=== PATIENT | female | born 1965 | race Caucasian/White ===

== ENCOUNTER → 2018-09-19 16:08 | Outpatient (CLI) | payer MEDICAID, SELFPAY ==
[2018-09-19 16:47] LABS: D-Dimer Quantitative (DVT/PE) 3.28 FEU/ug/m (0.27-0.49)
== END ==
PROVIDERS: Family Provider Family Medicine; PCP Family Medicine
DX: R06.02 Shortness of breath (principal)
CPT/HCPCS: 85379

== ENCOUNTER 2018-09-19 17:59 | Observation (INO) | payer MEDICAID, SELFPAY ==
[2018-09-19] VITALS (11 sets, daily range): BP systolic 95–142; BP diastolic 73–78; PULSE 89–117; RESP 18–21; TEMP 36.6–36.9; O2SAT 91–97; BMI 62.9; BMI 65.2
--- NOTE | 2018-09-19 19:07 | EKG12_ITS ---
Test Reason : SOB Blood Pressure : / mmHG Vent. Rate : 101 BPM Atrial Rate : 101 BPM P-R Int : 124 ms QRS Dur : 082 ms QT Int : 358 ms P-R-T Axes : 056 015 -15 degrees QTc Int : 464 ms Sinus tachycardia Low voltage QRS Nonspecific T wave abnormality Abnormal ECG Confirmed by JOCELINE SHANKAR ([id number]), film and video editor ALBERT BRIGGS ([id number]) on 09/20/2018 2:17:20 PM Referred By: Lucero Figueroa Confirmed By:JOCELINE SHANKAR
--- NOTE | 2018-09-19 19:13 | CT_ITS ---
STUDY: CTA HEAD AND NECK WITH CONTRAST REASON FOR EXAM: Female, 53 years old. Elevated d-dimer. Visual changes. RADIATION DOSAGE (If Supplied By Facility): CTDIvol = ( 36.41 ) mGy, DLP = ( 4228.81 ) mGycm TECHNIQUE: CT angiography was performed with a multi-detector CT scanner. Data acquisition was obtained from the skull base through the vertex following intravenous administration of 100ML IV Isovue 370. MIP images were reconstructed from the axial data set. Post-processing of the angiographic images was performed, with multiplanar reformation and 3D reconstruction. There is suboptimal enhancement. Individualized dose optimization techniques were used for this CT. COMPARISON: No relevant priors. FINDINGS: Normal bilateral petrous carotid arteries. Normal right cavernous carotid artery with a normal supraclinoid bifurcation. Normal left cavernous carotid artery with a normal supraclinoid bifurcation. Normal right A1 segments of the anterior cerebral artery. Normal left A1 segments of the anterior cerebral artery. Normal intact anterior communicating artery (ACOM). Normal bilateral A2 segments of the anterior cerebral arteries. Normal right M1 and M2 segments of the middle cerebral arteries, with a normal M1 bifurcation. Normal left M1 and M2 segments of the middle cerebral arteries, with a normal M1 bifurcation. There is non-visualization of the right posterior communicating artery (PCOM). Normal left posterior communicating artery (PCOM). Normal bilateral vertebral arteries. Normal basilar artery with a normal basilar bifurcation. The visualized bilateral superior cerebellar (SCA) arteries are normal. Normal bilateral P1, P2 and visualized P3 segments of the posterior cerebral arteries. There is no demonstrated aneurysm of the [place]. There is no demonstrated abnormality of the visualized brain. AORTIC ARCH: Normal visualized aortic arch. Normal origins of the brachiocephalic, left common carotid, and left subclavian arteries. RIGHT CAROTID ARTERIES: Normal right common carotid artery (CCA). Normal right common carotid bulb. Normal origin of the right internal carotid (ICA) artery without a hemodynamically significant stenosis. Normal visualized cervical portion of the right internal carotid artery. Normal origin of the right external carotid artery (ECA). LEFT CAROTID ARTERIES: Normal left common carotid artery (CCA). Normal left common carotid bulb. Normal origin of the left internal carotid (ICA) artery without a hemodynamically significant stenosis. Normal visualized cervical portion of the left internal carotid artery. Normal origin of the left external carotid artery (ECA). VERTEBRAL ARTERIES: Normal bilateral vertebral arteries. There are postoperative changes of the cervical spine. CT/CTA Head AND Neck W/ Contrast IMPRESSION: Normal CTA Head and neck with contrast. Electronically Signed: Kishan Phillips MD at 21:30 EDT , Service support ,
--- NOTE | 2018-09-19 19:13 | CT_ITS ---
We are attempting to reach an attending provider to discuss findings. An addendum with communication details will be sent when the communication is complete. STUDY: CTA CHEST REASON FOR EXAM: Female, 53 years old. Shortness of breath. Elevated d-dimer. Visual changes RADIATION DOSAGE (If Supplied By Facility): CTDIvol = ( 36.41 ) mGy, DLP = ( 4228.81 ) mGycm TECHNIQUE: The examination was performed with the intravenous administration of 100ML IV Isovue 370. Post-processing of the angiographic images was performed, with multiplanar reformation and 3D reconstruction. Individualized dose optimization techniques were used for this CT. COMPARISON: None. FINDINGS: There are diminished enhancement regions of the central and peripheral pulmonary arteries consistent with embolism . Normal thoracic aorta and visualized great vessels. There is no demonstrated aortic dissection. Normal heart and pericardium. Normal mediastinum. Normal hilar regions. Normal visualized trachea and bronchi. The lungs are well expanded. There is patchy left lower lung airspace opacity. Normal pleura. Normal chest wall structures. There are degenerative changes of thoracic spine. There are surgical clips in the gallbladder fossa consistent with a prior cholecystectomy. CT/CTA Chest W/WO Contrast IMPRESSION: Abnormal CTA chest examination, with bilateral pulmonary embolism . Left lower lung atelectasis or infiltrate.. Electronically Signed: Kishan Phillips MD at 21:18 EDT , Service support ,
[2018-09-19 19:37] LABS: Absolute Lymphocyte Count 2.01 X10^3/uL (0.83-4.51); Absolute Neutrophil Count 7.6 X10^3/uL (2.0-7.7); Basophil# 0.03 X10^3/uL; Basophil% 0.3 % (0-1); Eosinophil# 0.15 X10^3/uL; Eosinophils% 1.4 % (0-5); Hematocrit 36.7 % (37-47); Hemoglobin 11.9 g/dL (12.0-15.0); Lymphocyte # 2.01 X10^3/ul (4.0); Lymphocyte % 19.2 % (19-41); Mean Corp Hgb Conc 32.4 g/dL (32-36); Mean Corpuscular Hgb 30.2 pg (27.0-32.0); Mean Corpuscular Volume 93.1 fL (81-99); Mean Platelet Vol. 10.1 fl (6.2-12.0); Monocyte# 0.65 X10^3/uL; Monocyte% 6.2 % (0-10); NRBC Flagged by Analyzer 0 % (0-5); Neutrophil # 7.56 X10^3/uL (2.7-7.7); Neutrophil % 72.3 % (47-70); Platelet Count 343 K/mm3 (150-450); RBC Distribution Width CV 14.6 % (11.6-14.6); RBC Distribution Width SD 49.7 fl (35.1-43.9); Red Blood Count 3.94 M/mm3 (4.2-5.4); White Blood Count 10.5 K/mm3 (4.4-11.0)
--- NOTE | 2018-09-19 19:38 | ED.VISSUMM ---
- ER Visit Summary Date of Service: 09/19/18 Chief Complaint: Shortness of breath History of Present Illness: The patient is a 53 F presenting with shortness of breath. She states this started 5 days ago. She has shortness of breath which is worsened with exertion. She denies chest pain. She has had a nonproductive cough. She denies fever. She was seen by her primary care physician today who ordered a d-dimer which was positive. She has complained of dizziness, no syncope. Denies recent travel or surgery. No history of PE/DVT. Patient also states 2 days ago she had several minutes of vision changes. This has now resolved. She denies other complaints. Physical Examination: Vitals are stable. Patient is afebrile. Alert no acute distress. HEENT exam is unremarkable. Neck is supple. Lungs are diminished bilaterally. Heart is regular and tachycardic Abdomen is soft obese nontender nondistended. Extremities are unremarkable. Skin is warm and dry. No focal neurologic deficit. Remainder of exam is unremarkable. Emergency Department Course and Treatment: EKG is sinus tachycardia rate of 101. CTA chest shows abnormal CTA chest examination, with bilateral pulmonary embolism. Left lower lung atelectasis or infiltrate. Normal CTA Head and neck with contrast. CBC shows a hemoglobin 11.9. Chemistries show BUN 34, creatinine 1.49. Troponin 0.016. BNP 165.8. Patient was given Lovenox subcutaneously. Discussed with hospitalist for admission. Disposition: Admission Impression: Bilateral pulmonary embolism This note was generated with [employer] dictation software. It may contain incorrect words, spelling, and punctuation that were not noted in review of the chart prior to signing ED Disposition - Plan for ED Patient: Referrals: Pablo Mccarthy MD [Primary Care Provider] -
[2018-09-19 19:50] LABS: Anion Gap 9 (5-15); BUN 34 mg/dL (7-18); BUN/Creat Ratio 22.8 RATIO (10-20); Calcium,Total 9.1 mg/dL (8.5-10.1); Chloride 109 mmol/L (98-107); Creatinine, Serum 1.49 mg/dL (0.55-1.02); EST Glomerular Filtration Rate 39 mL/min (>60); Est Glom Filt Rate - Afr Amer 47 mL/min (>60); Estimated Creatinine Clearance 41.82 ml/min; Glucose 106 mg/dL (74-106); Potassium 4.4 mmol/L (3.5-5.1); Sodium Level 140 mmol/L (136-145)
[2018-09-19 20:07] LABS: BNP,B-Type NATRIURETIC PEPTIDE 165.8 pg/mL (0-100)
--- NOTE | 2018-09-19 22:11 | HP.PCM_ITS ---
History of Present Illness Date of Admission: 09/19/18 Chief Complaint: shortness of breath The patient is a 53 year old F who was admitted through the ED on 09/19/2018 with a complaint of shortness of breath for the past 5 days prior to admission. Shortness of breath started suddenly with no associated chest pain or palpitations or dizziness. 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 She denies any recent surgery or any weight loss. Review of systems otherwise negative. She is never had a history of PE or DVT. She went to see her PCP and a d-dimer done was elevated so she was sent to the ED where chest CT a done showed bilateral lower pulmonary embolism. She has been admitted to be managed for bilateral lower lobe PE [] Past Medical History Allergies prednisone Allergy (Verified 09/19/18 18:06) Swelling Home Medications: Ambulatory Orders Medication Instructions Recorded Ascorbic Acid [Vitamin C] 500 mg PO DAILY 09/19/18 Aspirin [Aspirin, Baby] 81 mg PO DAILY@0800 09/19/18 Calcium Carbonate/Vitamin D3 2 ea PO DAILY 09/19/18 [Calcium 600 + Vit D Tablet] Cetirizine HCl [Allergy Relief] 10 mg PO PRN PRN 09/19/18 Gabapentin [Neurontin] 600 mg PO QHS 09/19/18 Hydrochlorothiazide [Hctz] 25 mg PO DAILY 09/19/18 Lisinopril [Prinivil] 10 mg PO DAILY 09/19/18 Loperamide [Imodium] 2 mg PO BID 09/19/18 Lovastatin 20 mg PO QHS 09/19/18 MedroxyPROGESTERone [Depo-Provera] 150 mg IM .[id number] 09/19/18 Melatonin 5 mg PO QHS 09/19/18 Metformin HCl [Metformin ER 1,000 mg PO BID 09/19/18 Osmotic] Multivitamin with Minerals 1 ea PO DAILY 09/19/18 [Multiple Vitamin] Oxybutynin [Ditropan] 5 mg PO BID 09/19/18 Pantoprazole Sodium [Protonix] 40 mg PO DAILY 09/19/18 Paroxetine [Paxil] 40 mg PO DAILY 09/19/18 Pramipexole Di-HCl [Mirapex] 0.25 mg PO QHS 09/19/18 Propranolol HCl [Inderal (Beta 20 mg PO BID 09/19/18 Denae)] Spironolactone [Aldactone] 200 mg PO DAILY 09/19/18 Psychiatric History: No pertinent psych hx SWING GRINDER History: No pertinent SWING GRINDER history Lives: Alone Smoking Status: Former smoker Alcohol: None Drugs: None - *Family History Maternal History Items: Heart Disease Review of Systems Constitutional: Denies: Chills, Fever, Malaise, Weakness, Weight Change Eyes: Denies: Blurred vision HEENT: Denies: Head Aches, Sinus Congestion, Sinus Drainage Cardiovascular: Denies: Chest Pain, Palpitations Respiratory: Reports: Shortness of Breath, Shortness of breath at rest, Shortness of breath upon exertion. Denies: Cough, Sputum production, Wheezing Gastrointestinal: Denies: Abdominal Pain, Nausea, Vomiting Genitourinary: Denies: Dysuria Musculoskeletal: Denies: Joint Pain, Joint Tenderness Skin: Denies: Rash, Wounds Neurological: Denies: Numbness, Tingling, Focal weakness Psychiatric: Denies: Anxiety, Depression, Homicidal Ideations, Suicidal Ideati ons Hematologic/ Lymphatic: Denies: Easy Bruising, Easy Bleeding VTE Information - Inpt Only VTE Present on Admission: Yes - bilateral PE VTE Pharm Prophylaxis ordered?: Yes - Physical Exam General: Alert, Oriented x3, Cooperative, No apparent distress, - - super morbid obesity HEENT: Atraumatic, PERRLA, EOMI, Normocephalic Neck: Supple, No JVD, Negative Carotid Bruits Lungs: Clear to auscultation, Normal air movement Cardiovascular: Regular rate, Normal S1, Normal S2, No murmurs, Tachycardic Abdomen: Bowel Sounds Present, Soft, Non Tender Extremities: No edema, Capillary Refill Less than 3 Seconds Skin: No rashes, No breakdown Musculoskeletal: No Tenderness to Palpation of Joints or Extremities Lymphatic: No Cervical, Supraclavicular, or Inguinal Adenopathy Neurological: Cranial nerves II-XII grossly intact, Neuro grossly intact, Motor Exam 5/5 strength throughout Psych/Mental Status: Normal Affect, Appropriate, Alert and oriented to time, place, person, mood and affect Vital Signs Temp Pulse Resp BP Pulse Ox 98.5 F 109 H 18 111/78 96 09/19/18 18:03 09/19/18 21:00 09/19/18 21:00 09/19/18 21:00 09/19/18 21:00 Oxygen Flow Rate (L/min) 2 Oxygen Delivery Method Room Air Weight: 390 lb 3.491 oz Body Mass Index (BMI) 62.9 Laboratory Tests Past 24 Hrs 09/19/18 09/19/18 09/19/18 18:42 18:42 18:42 WBC 10.5 RBC 3.94 L Hgb 11.9 L Hct 36.7 L MCV 93.1 MCH 30.2 MCHC 32.4 RDW Std Deviation 49.7 H RDW Coeff of Delta 14.6 Plt Count 343 MPV 10.1 Immature Gran % (Auto) 0.600 Neut % (Auto) 72.3 H Lymph % (Auto) 19.2 [place] % (Auto) 6.2 Eos % (Auto) 1.4 Baso % (Auto) 0.3 Absolute Neuts (auto) 7.6 Absolute Lymphs (auto) 2.01 Nucleated RBC % 0 Sodium 140 Potassium 4.4 Chloride 109 H Carbon Dioxide 22.0 Anion Gap 9 BUN 34 H Creatinine 1.49 H Estim Creat Clear Calc 41.82 Est GFR (MDRD) Af Amer 47 L Est GFR (MDRD) Non-Af 39 L BUN/Creatinine Ratio 22.8 H Glucose 106 Calcium 9.1 Troponin I 0.016 B-Natriuretic Peptide 165.8 H Diagnostic Data Chest CTA 09/19/18 19:13 IMPRESSION: Abnormal CTA chest examination, with bilateral pulmonary embolism . Left lower lung atelectasis or infiltrate.. Electronically Signed: Kishan Phillips MD at 21:18 EDT , Service support , ADDENDUM: 09/19/18 2138 IMPRESSION: Abnormal CTA chest examination, with bilateral pulmonary embolism . Left lower lung atelectasis or infiltrate.. N.B. : The above information has been verbally conveyed by iKshan Phillips MD to Anna Vallejo MD, on 09/19/2018 21:31:20 (ET). Electronically Signed: Kishan Phillips MD at 21:18 EDT , Service support , Head/Neck CTA 09/19/18 19:13 IMPRESSION: Normal CTA Head and neck with contrast. Electronically Signed: Kishan Phillips MD at 21:30 EDT , Service support , Assessment/Plan 53 y/o admitted with a complaint of shortness of breath for hte past 5 days prior to admission 1. Bilateral PE * admit to PCU with telemetry * BNP was mildly elevated at 165.8 with troponin was negative. * give one dose of therapeutic lovenox * to start oral anticoagulation tomorrow, based on which one her insurance will cover, and she can be discharged on * titrate oxygen to maintain sats>90% * 2. JOSEFINA: Cr is 1.49. No baseline in EMR. WIll hydrate with IVF and monitor 3. Hypertension: Lisinopril and hydrochlorothiazide. 4. Hyperlipidemia: On statin. 5. Polycystic ovarian syndrome: On metformin. 6. Super morbid obesity: * Likely the predisposing factor to the PE. * Complicates acute care, expected recovery and prognosis. * Counseled on DASH diet and weight loss exercise. * DVT prophylaxis: On therapeutic Lovenox is under 1. Code Visit OBSV E&M: 56663 Initial observation care L3
[2018-09-19] MEDS: Enoxaparin 150 MG/ML Syringe SC (22:17)
[2018-09-20] VITALS (9 sets, daily range): BP systolic 104–140; BP diastolic 67–77; PULSE 67–98; RESP 14–18; TEMP 36.3–36.7; O2SAT 95–98
[2018-09-20] MEDS: Pramipexole Di-HCl 0.25 MG Tablet PO (00:12)
[2018-09-20] MEDS: MELATONIN 10 MG TABLET 5 MG PO (00:12)
[2018-09-20] MEDS: Gabapentin 600 MG Tablet PO (00:13)
--- NOTE | 2018-09-20 01:45 | CPS ---
pt unable to tolerate using CPAP
[2018-09-20 06:20] LABS: Absolute Lymphocyte Count 2.48 X10^3/uL (0.83-4.51); Absolute Neutrophil Count 5.6 X10^3/uL (2.0-7.7); Basophil# 0.03 X10^3/uL; Basophil% 0.3 % (0-1); Eosinophil# 0.18 X10^3/uL; Hematocrit 36.6 % (37-47); Hemoglobin 11.5 g/dL (12.0-15.0); Lymphocyte # 2.48 X10^3/ul (4.0); Lymphocyte % 28.1 % (19-41); Mean Corp Hgb Conc 31.4 g/dL (32-36); Mean Corpuscular Hgb 28.9 pg (27.0-32.0); Mean Platelet Vol. 9.8 fl (6.2-12.0); Monocyte# 0.52 X10^3/uL; Monocyte% 5.9 % (0-10); NRBC Flagged by Analyzer 0 % (0-5); Neutrophil # 5.56 X10^3/uL (2.7-7.7); Neutrophil % 63.2 % (47-70); Platelet Count 316 K/mm3 (150-450); RBC Distribution Width CV 14.6 % (11.6-14.6); RBC Distribution Width SD 49.1 fl (35.1-43.9); Red Blood Count 3.98 M/mm3 (4.2-5.4); White Blood Count 8.8 K/mm3 (4.4-11.0)
[2018-09-20 06:41] LABS: Anion Gap 14 (5-15); BUN 28 mg/dL (7-18); BUN/Creat Ratio 23.5 RATIO (10-20); Calcium,Total 9.1 mg/dL (8.5-10.1); Chloride 108 mmol/L (98-107); Creatinine, Serum 1.19 mg/dL (0.55-1.02); EST Glomerular Filtration Rate 51 mL/min (>60); Est Glom Filt Rate - Afr Amer 61 mL/min (>60); Estimated Creatinine Clearance 50.33 ml/min; Glucose 87 mg/dL (74-106); Potassium 3.8 mmol/L (3.5-5.1); Sodium Level 142 mmol/L (136-145)
[2018-09-20] MEDS: Aspirin 81 MG TAB.CHEW PO (08:39)
[2018-09-20] MEDS: metFORMIN (XR) 500 MG Tablet 1000 MG PO (08:39)
[2018-09-20] MEDS: Spironolactone 50 MG Tablet 200 MG PO (08:40)
[2018-09-20] MEDS: Paroxetine 20 MG Tablet 40 MG PO (08:40)
[2018-09-20] MEDS: APIXABAN 5 MG TABLET 10 MG PO (08:42)
[2018-09-20] MEDS: Oxybutynin 5 MG Tablet PO (08:42)
[2018-09-20] MEDS: Propranolol 10 MG Tablet 20 MG PO (08:42)
[2018-09-20] MEDS: Pantoprazole Sodium 40 MG Tablet PO (08:43)
[2018-09-20] MEDS: Loperamide 2 MG Capsule 4 MG PO (08:43)
[2018-09-20] MEDS: hydroCHLOROthiazide 25 MG Tablet PO (08:43)
[2018-09-20] MEDS: Lisinopril 10 MG Tablet PO (08:44)
--- NOTE | 2018-09-20 10:28 | DCINST_ITS ---
You will use the following diet at home:: Calorie/Carbohydrate Controlled (specify 1200, 1400, etc) Discharge Activity: Return to Normal Activity Call your doctor if you observe: Shortness of breath, Dizziness, Fainting spells, Chest pain Allergies/Adverse Reactions: Allergies prednisone Allergy (Verified 09/19/18 18:06) Swelling Medications to take at Discharge Ascorbic Acid [Vitamin C] 500 mg PO DAILY 09/19/18 Aspirin [Aspirin, Baby] 81 mg PO DAILY@0800 09/19/18 Calcium Carbonate/Vitamin D3 [Calcium 600 + Vit D Tablet] 2 ea PO BID 09/19/18 Cetirizine HCl [Allergy Relief] 10 mg PO DAILY 09/19/18 Gabapentin [Neurontin] 600 mg PO QHS 09/19/18 Hydrochlorothiazide [Hctz] 25 mg PO DAILY 09/19/18 Lisinopril [Prinivil] 10 mg PO DAILY 09/19/18 Loperamide [Imodium] 2 mg PO DAILY 09/19/18 Lovastatin 20 mg PO QHS 09/19/18 Melatonin 5 mg PO QHS 09/19/18 Metformin HCl [Metformin ER Osmotic] 1,000 mg PO BID 09/19/18 Multivitamin with Minerals [Multiple Vitamin] 1 ea PO DAILY 09/19/18 Oxybutynin [Ditropan] 5 mg PO BID 09/19/18 Pantoprazole Sodium [Protonix] 40 mg PO DAILY 09/19/18 Paroxetine [Paxil] 40 mg PO DAILY 09/19/18 Pramipexole Di-HCl [Mirapex] 0.25 mg PO QHS 09/19/18 Propranolol HCl [Inderal (Beta Denae)] 20 mg PO BID 09/19/18 Spironolactone [Aldactone] 100 mg PO BID 09/19/18 Enoxaparin [Lovenox] 150 mg SUBCUT Q12@0600,1800 #14 syringe 09/20/18 Warfarin [Coumadin] 5 mg PO DAILY #30 tab 09/20/18 The following prescriptions were given: Warfarin [Coumadin] 5 mg PO DAILY #30 tab Transmission Status: Received by [facility] Enoxaparin [Lovenox] 150 mg SUBCUT Q12@0600,1800 #14 syringe Transmission Status: Received by [facility] Orders to be completed after discharge: Prothrombin Time w/INR Time Frame: 09/24/18, Facility: [facility], Location: Laboratory Primary Care Physician: Pablo Mccarthy MD [Primary Care Provider] - Please follow up with your Primary Care Physician in: 1 Week Test Results: Test results from this visit will be discussed in further detail at your follow- up appointment, if applicable. Please Follow Up With: Carlotta Keller NP-C When: 2 Weeks Proposed Discharge Date: 09/20/18
--- NOTE | 2018-09-20 11:35 | CASEMGMT ---
Pt has no insurance and plan was to send home on Eliquis. Dr. Sanchez aware of self pay and states will send pt home on lovenox and coumadin and meds were e-scribed to [facility] retail pharmacy previously. Per Yareli in [facility] retail pharmacy, pt's out of pocket cost for Lovenox is $228.96 and Coumadin is $15.99. Pt updated at this time and she states that she only has $100 in her checking acct and she will not get paid again until october. 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 Pt states that Lucinda from [facility] did meet with her and requested her financial info to help her complete some paperwork. [facility] Rx assist to be utilized to assist pt at this time. Call to [facility] pharmacy to notify that Rx assist to be used and Tomi voices understanding. Rx assist completed and tubed to pharmacy at this time. Nya Salgado aware of pt and financial concerns at this time. Pt provided with numerous Rx assist programs, info on [facility], people to people, and local dental clinics at this time. Pt does see Dr[facility] Mcc[facility] at [facility] and states has met with several financial assistance reps there in the past. Call to Arlet Carrillo CM for Dr. Mccarthy, and she is updated on pt visit at this time. Arlet states she was not following pt in the past but plans to from this point on and she states she will get ahold of pt tomorrow to set up appt with Dr. Mccarthy. Arlet is aware that pt needs INR drawn on Monday, voices understanding. Pt is updated on all at this time, voices understanding. Pt voices no further questions/concerns/needs at this time. Brent WEAVER CM
--- NOTE | 2018-09-20 12:25 | PCM.DC.SUM ---
<Tammy Lea - Last Filed: 09/20/18 13:03> Discharge Date and Diagnosis Date of Admission: 09/19/18 Date of Discharge: 09/20/18 - Primary Discharge Diagnosis 1. Acute bilateral pulmonary embolism 2. Acute kidney injury 3. Hypertension 4. Hyperlipidemia 5. Polycystic ovarian syndrome 6. Super morbid obesity 7. Anxiety/Depression 8. RLS Hospital Course and Treatment Imaging Results: Diagnostic Data Chest CTA 09/19/18 19:13 IMPRESSION: Abnormal CTA chest examination, with bilateral pulmonary embolism . Left lower lung atelectasis or infiltrate.. Electronically Signed: Kishan Phillips MD at 21:18 EDT , Service support , ADDENDUM: 09/19/18 2138 IMPRESSION: Abnormal CTA chest examination, with bilateral pulmonary embolism . Left lower lung atelectasis or infiltrate.. N.B. : The above information has been verbally conveyed by Kishan Phillips MD to Anna Vallejo MD, on 09/19/2018 21:31:20 (ET). Electronically Signed: Kishan Phillips MD at 21:18 EDT , Service support , Head/Neck CTA 09/19/18 19:13 IMPRESSION: Normal CTA Head and neck with contrast. Electronically Signed: Kishan Phillips MD at 21:30 EDT , Service support , Operations: None Procedures: None Summary of Care Provided: The patient is a 53 year old F admitted 09/19/2018 due to shortness of breath. 1. Bilateral pulmonary embolism-CT on admission with bilateral pulmonary embolism. Patient has not been hypoxic. Mild tachycardia resolved. Patient does not have insurance therefore was not able to be placed on novel anticoagulants. Discharge on therapeutic Lovenox 1 mg/kg and Coumadin. Complete INR on 09/24/2018 with further Coumadin monitoring by primary care provider. Patient was on Depo-Provera injections for treatment of heavy menstruation which she was instructed to discontinue at discharge. Follow-up with primary [facility] for further management. Follow-up with primary care provider in 1 week. 2. Acute kidney injury-improved with IV fluids. Recommend repeat BMP by primary care provider as outpatient. 3. Hypertension-stable, continue home HCTZ, lisinopril, spironolactone, propranolol regimen. 4. Hyperlipidemia-continue statin regimen. 5. Polycystic ovarian syndrome-continue home metformin regimen. 6. Super morbid obesity-encouraged diet lifestyle modifications. 7. Anxiety/Depression-continue home paroxetine regimen. 8. Restless leg syndrome-on gabapentin and Mirapex regimen at bedtime. Patient seen and examined prior to discharge. Physical assessment as noted below. Patient is stable for discharge with follow up recommendations as noted above. This patient was seen by ANDRÉS Osman under the supervision of Dr. Sanchez. - Physical Exam General: Alert, Oriented x3, Cooperative HEENT: Atraumatic, PERRLA, EOMI, Normocephalic Neck: Supple, No JVD, Negative Carotid Bruits Lungs: Clear to auscultation, Diminished Cardiovascular: Regular rate, Regular Rhythm, Normal S1, Normal S2, No murmurs Abdomen: Bowel Sounds Present, Soft, Non Tender, Non-Distended, Obese Extremities: No clubbing, No cyanosis, No edema, Capillary Refill Less than 3 Seconds Skin: No rashes, No breakdown Musculoskeletal: No Tenderness to Palpation of Joints or Extremities Neurological: Cranial nerves II-XII grossly intact, Neuro grossly intact Psych/Mental Status: Normal Affect, Appropriate Vital Signs Temp Pulse Resp BP Pulse Ox 98.1 F 98 18 131/69 H 96 09/20/18 09:45 09/20/18 09:45 09/20/18 09:45 09/20/18 09:45 09/20/18 09:45 Oxygen Flow Rate (L/min) 2 Oxygen Delivery Method Room Air Weight: 392 lb Body Mass Index (BMI) 65.2 Intake and Output for Last 24 Hours 09/18/18 09/19/18 09/20/18 23:59 23:59 23:59 Intake Total 900 / 900 Balance 900 / 900 Laboratory Tests Past 24 Hrs 09/19/18 09/19/18 09/19/18 18:42 18:42 18:42 WBC 10.5 RBC 3.94 L Hgb 11.9 L Hct 36.7 L MCV 93.1 MCH 30.2 MCHC 32.4 RDW Std Deviation 49.7 H RDW Coeff of Delta 14.6 Plt Count 343 MPV 10.1 Immature Gran % (Auto) 0.600 Neut % (Auto) 72.3 H Lymph % (Auto) 19.2 Bates % (Auto) 6.2 Eos % (Auto) 1.4 Baso % (Auto) 0.3 Absolute Neuts (auto) 7.6 Absolute Lymphs (auto) 2.01 Nucleated RBC % 0 Sodium 140 Potassium 4.4 Chloride 109 H Carbon Dioxide 22.0 Anion Gap 9 BUN 34 H Creatinine 1.49 H Estim Creat Clear Calc 41.82 Est GFR (MDRD) Af Amer 47 L Est GFR (MDRD) Non-Af 39 L BUN/Creatinine Ratio 22.8 H Glucose 106 Calcium 9.1 Troponin I 0.016 B-Natriuretic Peptide 165.8 H 09/20/18 09/20/18 05:35 05:35 WBC 8.8 RBC 3.98 L Hgb 11.5 L Hct 36.6 L MCV 92.0 MCH 28.9 MCHC 31.4 L RDW Std Deviation 49.1 H RDW Coeff of Delta 14.6 Plt Count 316 MPV 9.8 Immature Gran % (Auto) 0.500 Neut % (Auto) 63.2 Lymph % (Auto) 28.1 Bates % (Auto) 5.9 Eos % (Auto) 2.0 Baso % (Auto) 0.3 Absolute Neuts (auto) 5.6 Absolute Lymphs (auto) 2.48 Nucleated RBC % 0 Sodium 142 Potassium 3.8 Chloride 108 H Carbon Dioxide 20.0 L Anion Gap 14 BUN 28 H Creatinine 1.19 H Estim Creat Clear Calc 50.33 Est GFR (MDRD) Af Amer 61 Est GFR (MDRD) Non-Af 51 L BUN/Creatinine Ratio 23.5 H Glucose 87 Calcium 9.1 Troponin I B-Natriuretic Peptide Discharge Diet: 1800 Calorie Control Diet Discharge Activity: Return to Normal Activity Call your doctor if you observe: Shortness of breath, Dizziness, Fainting spells, Chest pain Home Medications: Medications to take at Discharge Ascorbic Acid [Vitamin C] 500 mg PO DAILY 09/19/18 Aspirin [Aspirin, Baby] 81 mg PO DAILY@0800 09/19/18 Calcium Carbonate/Vitamin D3 [Calcium 600 + Vit D Tablet] 2 ea PO BID 09/19/18 Cetirizine HCl [Allergy Relief] 10 mg PO DAILY 09/19/18 Gabapentin [Neurontin] 600 mg PO QHS 09/19/18 Hydrochlorothiazide [Hctz] 25 mg PO DAILY 09/19/18 Lisinopril [Prinivil] 10 mg PO DAILY 09/19/18 Loperamide [Imodium] 2 mg PO DAILY 09/19/18 Lovastatin 20 mg PO QHS 09/19/18 Melatonin 5 mg PO QHS 09/19/18 Metformin HCl [Metformin ER Osmotic] 1,000 mg PO BID 09/19/18 Multivitamin with Minerals [Multiple Vitamin] 1 ea PO DAILY 09/19/18 Oxybutynin [Ditropan] 5 mg PO BID 09/19/18 Pantoprazole Sodium [Protonix] 40 mg PO DAILY 09/19/18 Paroxetine [Paxil] 40 mg PO DAILY 09/19/18 Pramipexole Di-HCl [Mirapex] 0.25 mg PO QHS 09/19/18 Propranolol HCl [Inderal (Beta Denae)] 20 mg PO BID 09/19/18 Spironolactone [Aldactone] 100 mg PO BID 09/19/18 Enoxaparin [Lovenox] 150 mg SUBCUT Q12@0600,1800 #14 syringe 09/20/18 Warfarin [Coumadin] 5 mg PO DAILY #30 tab 09/20/18 Following Prescrptions Were Given to Patient: Warfarin [Coumadin] 5 mg PO DAILY #30 tab Transmission Status: Received by [facility] Enoxaparin [Lovenox] 150 mg SUBCUT Q12@0600,1800 #14 syringe Transmission Status: Received by [facility] Other Amb Orders: Prothrombin Time w/INR Time Frame: 09/24/18, Facility: [facility], Location: Laboratory Primary Care Physician: Pablo Mccarthy MD [Primary Care Provider] - Please follow up with your Primary Care Physician in: 1 Week Please Follow Up With: Carlotta Keller NP-C When: 2 Weeks Disposition: Home Minutes spent on discharge:: 35 Patient Condition:: Stable Medical Necessity - Tobacco Use Smoking Status: Former smoker Tobacco Use: Cigarettes Meaningful Use Info Meaningful Use Diagnoses (Choose all that apply): VTE - VTE Anticoag overlap given w/in hospital stay or rx'd at pr?: Yes Pt receive overlap for 5 days?: Yes <Rich Sanchez - Last Filed: 09/20/18 14:03> Hospital Course and Treatment Operations: None Procedures: None Summary of Care Provided: Patient seen and examined independently. Data reviewed. I agree with the above note by the nurse practitioner. The patient is a 53 year old F presents with shortness of breath. For about a week prior patient was not feeling well and had what seemed like an upper respiratory tract infection. 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 Presented with shortness of breath and found to have bilateral PE. Patient was initially started on enoxaparin and then switch over to apixaban. Patient states that she does not have insurance and thus would not be on unable to afford any of the novel anticoagulants such as apixaban or rivaroxaban. Discussed with the patient about warfarin and enoxaparin. I explained to her that these are not the recommended therapy and that would be apixaban rivaroxaban but this would be the alternative due to her financial strains. I did talk to her in great detail about warfarin and its effect by diet. I expressed to her that with diet to have an already on approach to green leafy vegetables. Patient states that she does not care for kale so I told her to essentially avoid all green leafy vegetables. I did tell her that once her INR gets regulated that it could likely be spaced out may be checked every month or so but if symptoms go on antibiotics in the interim that that she would need to have her INR checked more frequently around the timing of the antibiotics. I did tell her that if she does get insurance in the meantime that she could go on 1 of these other oral agents and that she would need to work with her primary care provider in regards to initiating that. Upon reviewing her medications patient is on Depo-Provera I did talk with her about that can also increase the likelihood of thromboembolism and recommended discontinuing that. Unfortunately it is a 3-month injection in her she just received an injection last month. I have advised that being discontinued altogether. Patient will need follow-up with her food processing scientist about other options to help with her menorrhagia. Patient will need to continue with her enoxaparin for 24 hours after her INR has been determined to be therapeutic. [] - Physical Exam General: Alert, Cooperative HEENT: Atraumatic, Normocephalic Abdomen: Obese Extremities: No edema, No Calf Tenderness Vital Signs Temp Pulse Resp BP Pulse Ox 36.7 C 98 18 131/69 H 96 09/20/18 09:45 09/20/18 09:45 09/20/18 09:45 09/20/18 09:45 09/20/18 09:45 Oxygen Flow Rate (L/min) 2 Oxygen Delivery Method Room Air Weight: 177.808 kg Body Mass Index (BMI) 65.2 Intake and Output for Last 24 Hours 09/18/18 09/19/18 09/20/18 23:59 23:59 23:59 Intake Total 900 / 900 Balance 900 / 900 Laboratory Tests Past 24 Hrs 09/19/18 09/19/18 09/19/18 18:42 18:42 18:42 WBC 10.5 RBC 3.94 L Hgb 11.9 L Hct 36.7 L MCV 93.1 MCH 30.2 MCHC 32.4 RDW Std Deviation 49.7 H RDW Coeff of Delta 14.6 Plt Count 343 MPV 10.1 Immature Gran % (Auto) 0.600 Neut % (Auto) 72.3 H Lymph % (Auto) 19.2 Bates % (Auto) 6.2 Eos % (Auto) 1.4 Baso % (Auto) 0.3 Absolute Neuts (auto) 7.6 Absolute Lymphs (auto) 2.01 Nucleated RBC % 0 Sodium 140 Potassium 4.4 Chloride 109 H Carbon Dioxide 22.0 Anion Gap 9 BUN 34 H Creatinine 1.49 H Estim Creat Clear Calc 41.82 Est GFR (MDRD) Af Amer 47 L Est GFR (MDRD) Non-Af 39 L BUN/Creatinine Ratio 22.8 H Glucose 106 Calcium 9.1 Troponin I 0.016 B-Natriuretic Peptide 165.8 H 09/20/18 09/20/18 05:35 05:35 WBC 8.8 RBC 3.98 L Hgb 11.5 L Hct 36.6 L MCV 92.0 MCH 28.9 MCHC 31.4 L RDW Std Deviation 49.1 H RDW Coeff of Delta 14.6 Plt Count 316 MPV 9.8 Immature Gran % (Auto) 0.500 Neut % (Auto) 63.2 Lymph % (Auto) 28.1 Bates % (Auto) 5.9 Eos % (Auto) 2.0 Baso % (Auto) 0.3 Absolute Neuts (auto) 5.6 Absolute Lymphs (auto) 2.48 Nucleated RBC % 0 Sodium 142 Potassium 3.8 Chloride 108 H Carbon Dioxide 20.0 L Anion Gap 14 BUN 28 H Creatinine 1.19 H Estim Creat Clear Calc 50.33 Est GFR (MDRD) Af Amer 61 Est GFR (MDRD) Non-Af 51 L BUN/Creatinine Ratio 23.5 H Glucose 87 Calcium 9.1 Troponin I B-Natriuretic Peptide Discharge Diet: 1800 Calorie Control Diet Discharge Activity: Return to Normal Activity Call your doctor if you observe: Shortness of breath, Dizziness, Fainting spells, Chest pain Disposition: Home Minutes spent on discharge:: 45 Patient Condition:: Stable Medical Necessity - Tobacco Use Smoking Status: Former smoker Tobacco Use: Cigarettes Meaningful Use Info Meaningful Use Diagnoses (Choose all that apply): VTE - VTE Anticoag overlap given w/in hospital stay or rx'd at pr?: Yes Pt receive overlap for 5 days?: Yes Code Visit OBSV E&M: 10641 Observation care discharge
== END 2018-09-20 10:29 | disposition home or self-care (01) ==
LOC: ED 20:01 → PCU 22:39
PROVIDERS: Admitting Provider Student in an Organized Health Care Education/Training Program; Emergency Provider Emergency Medicine; Family Provider Family Medicine; PCP Family Medicine; Referring Provider Student in an Organized Health Care Education/Training Program
DX: I26.99 Other pulmonary embolism without acute cor pulmonale (principal); I10 Essential (primary) hypertension; E28.2 Polycystic ovarian syndrome; N17.9 Acute kidney failure, unspecified; E78.5 Hyperlipidemia, unspecified; E66.01 Morbid (severe) obesity due to excess calories; F32.9 Major depressive disorder, single episode, unspecified; F41.9 Anxiety disorder, unspecified; G25.81 Restless legs syndrome; Z68.44 Body mass index [BMI] 60.0-69.9, adult; Z79.82 Long term (current) use of aspirin; Z79.84 Long term (current) use of oral hypoglycemic drugs; Z79.899 Other long term (current) drug therapy; Z87.891 Personal history of nicotine dependence
CPT/HCPCS: 36415; 70496; 70498; 71275; 80048; 83880; 84484; 85025; 93005; 94660; 94760; 96372; 99218; 99285; Q9967; A4216; G0378

== ENCOUNTER → 2018-09-24 13:46 | Outpatient (CLI) | payer MEDICAID, SELFPAY ==
[2018-09-24 13:46] VITALS: BMI 62.9
[2018-09-24 16:12] LABS: International Normalized Ratio 1.5; Prothrombin Time (Protime)PT. 17.6 SECONDS (11.7-14.9)
== END ==
PROVIDERS: Family Provider Family Medicine; PCP Family Medicine
DX: Z79.01 Long term (current) use of anticoagulants (principal)
CPT/HCPCS: 36415; 85610

== ENCOUNTER → 2018-09-25 11:56 | Outpatient (CLI) | payer MEDICAID, SELFPAY ==
[2018-09-24 13:46] VITALS: BMI 62.9
[2018-09-25 12:53] LABS: International Normalized Ratio 1.5; Prothrombin Time (Protime)PT. 17.8 SECONDS (11.7-14.9)
== END ==
PROVIDERS: Family Provider Family Medicine; PCP Family Medicine; Referring Provider Family Medicine; Visit Provider Family Medicine
DX: I26.99 Other pulmonary embolism without acute cor pulmonale (principal)
CPT/HCPCS: 85610

== ENCOUNTER → 2018-09-27 10:48 | Outpatient (CLI) | payer MEDICAID, SELFPAY ==
[2018-09-24 13:46] VITALS: BMI 62.9
[2018-09-27 11:14] LABS: Prothrombin Time (Protime)PT. 22.4 SECONDS (11.7-14.9)
== END ==
PROVIDERS: Family Provider Family Medicine; PCP Family Medicine; Referring Provider Family Medicine; Visit Provider Family Medicine
DX: I26.99 Other pulmonary embolism without acute cor pulmonale (principal); Z79.01 Long term (current) use of anticoagulants
CPT/HCPCS: 85610

== ENCOUNTER → 2018-10-09 12:11 | Outpatient (CLI) | payer SELFPAY ==
[2018-09-24 13:46] VITALS: BMI 62.9
[2018-10-09 12:34] LABS: International Normalized Ratio 2.4; Prothrombin Time (Protime)PT. 26.4 SECONDS (11.7-14.9)
== END ==
PROVIDERS: Family Provider Family Medicine; PCP Family Medicine; Referring Provider Family Medicine; Visit Provider Family Medicine
DX: I26.99 Other pulmonary embolism without acute cor pulmonale (principal)
CPT/HCPCS: 85610

== ENCOUNTER → 2019-08-29 14:05 | Outpatient (CLI) | payer MEDICAID, SELFPAY ==
[2018-09-24 13:46] VITALS: BMI 62.9
[2019-08-29 14:41] LABS: Absolute Lymphocyte Count 1.39 X10^3/uL (0.83-4.51); Absolute Neutrophil Count 6.2 X10^3/uL (2.0-7.7); Basophil# 0.02 X10^3/uL; Basophil% 0.2 % (0-1); Eosinophils% 2.4 % (0-5); Hematocrit 38.2 % (37-47); Hemoglobin 12.3 g/dL (12.0-15.0); Lymphocyte # 1.39 X10^3/ul (4.0); Lymphocyte % 16.5 % (19-41); Mean Corp Hgb Conc 32.2 g/dL (32-36); Mean Corpuscular Hgb 30.8 pg (27.0-32.0); Mean Corpuscular Volume 95.7 fL (81-99); Mean Platelet Vol. 9.7 fl (6.2-12.0); Monocyte# 0.59 X10^3/uL; NRBC Flagged by Analyzer 0 % (0-5); Neutrophil % 73.5 % (47-70); Platelet Count 312 K/mm3 (150-450); RBC Distribution Width CV 13.9 % (11.6-14.6); RBC Distribution Width SD 48.3 fl (35.1-43.9); Red Blood Count 3.99 M/mm3 (4.2-5.4); White Blood Count 8.4 K/mm3 (4.4-11.0)
[2019-08-29 15:04] LABS: BNP,B-Type NATRIURETIC PEPTIDE 52.7 pg/mL (0-100)
[2019-08-29 15:23] LABS: D-Dimer Quantitative (DVT/PE) 4.71 FEU/ug/m (0.27-0.49)
== END ==
PROVIDERS: PCP Family Medicine; Referring Provider Nurse Practitioner Primary Care; Visit Provider Nurse Practitioner Primary Care
DX: R06.02 Shortness of breath (principal)
CPT/HCPCS: 36415; 83880; 85025; 85379

== ENCOUNTER → 2019-09-06 14:56 | Outpatient (CLI) | payer MEDICAID, SELFPAY ==
[2018-09-24 13:46] VITALS: BMI 62.9
[2019-09-06 16:11] LABS: International Normalized Ratio 1.9; Prothrombin Time (Protime)PT. 21.6 SECONDS (11.7-14.9)
== END ==
PROVIDERS: PCP Family Medicine; Referring Provider Family Medicine; Visit Provider Family Medicine
DX: R51 Headache (principal); H53.8 Other visual disturbances
CPT/HCPCS: 85610

== ENCOUNTER → 2019-09-09 11:56 | Outpatient (CLI) | payer MEDICAID, SELFPAY ==
[2018-09-24 13:46] VITALS: BMI 62.9
[2019-09-09 12:36] LABS: International Normalized Ratio 2.3; Prothrombin Time (Protime)PT. 24.6 SECONDS (11.7-14.9)
== END ==
PROVIDERS: PCP Family Medicine; Referring Provider Family Medicine; Visit Provider Family Medicine
DX: I26.09 Other pulmonary embolism with acute cor pulmonale (principal)
CPT/HCPCS: 85610

== ENCOUNTER → 2019-10-17 12:25 | Outpatient (CLI) | payer MEDICAID, SELFPAY ==
[2018-09-24 13:46] VITALS: BMI 62.9
[2019-10-17 12:56] LABS: International Normalized Ratio 2.9; Prothrombin Time (Protime)PT. 29.5 SECONDS (11.7-14.9)
== END ==
PROVIDERS: PCP Family Medicine; Referring Provider Family Medicine; Visit Provider Family Medicine
DX: I26.09 Other pulmonary embolism with acute cor pulmonale (principal)
CPT/HCPCS: 85610

== ENCOUNTER → 2019-10-24 17:24 | Outpatient (CLI) | payer MEDICAID, SELFPAY ==
[2018-09-24 13:46] VITALS: BMI 62.9
[2019-10-24 18:51] LABS: International Normalized Ratio 2.8; Prothrombin Time (Protime)PT. 29.1 SECONDS (11.7-14.9)
== END ==
PROVIDERS: PCP Family Medicine; Referring Provider Family Medicine; Visit Provider Family Medicine
DX: I26.09 Other pulmonary embolism with acute cor pulmonale (principal)
CPT/HCPCS: 85610

== ENCOUNTER → 2019-11-06 16:25 | Outpatient (CLI) | payer MEDICAID, SELFPAY ==
[2018-09-24 13:46] VITALS: BMI 62.9
[2019-11-06 16:59] LABS: International Normalized Ratio 2.4; Prothrombin Time (Protime)PT. 25.8 SECONDS (11.7-14.9)
== END ==
PROVIDERS: PCP Family Medicine; Referring Provider Family Medicine; Visit Provider Family Medicine
DX: I26.09 Other pulmonary embolism with acute cor pulmonale (principal)
CPT/HCPCS: 85610

== ENCOUNTER → 2019-12-05 16:34 | Outpatient (CLI) | payer MEDICAID, SELFPAY ==
[2018-09-24 13:46] VITALS: BMI 62.9
[2019-12-05 17:22] LABS: International Normalized Ratio 3.3; Prothrombin Time (Protime)PT. 33.1 SECONDS (11.7-14.9)
== END ==
PROVIDERS: PCP Family Medicine; Referring Provider Family Medicine; Visit Provider Family Medicine
DX: I26.09 Other pulmonary embolism with acute cor pulmonale (principal)
CPT/HCPCS: 85610

== ENCOUNTER → 2019-12-12 17:08 | Outpatient (CLI) | payer MEDICAID, SELFPAY ==
[2018-09-24 13:46] VITALS: BMI 62.9
[2019-12-12 17:20] LABS: International Normalized Ratio 2.5; Prothrombin Time (Protime)PT. 26.8 SECONDS (11.7-14.9)
== END ==
PROVIDERS: PCP Family Medicine; Visit Provider Family Medicine
DX: I26.09 Other pulmonary embolism with acute cor pulmonale (principal)
CPT/HCPCS: 85610

== ENCOUNTER → 2019-12-19 17:04 | Outpatient (CLI) | payer MEDICAID, SELFPAY ==
[2018-09-24 13:46] VITALS: BMI 62.9
[2019-12-19 17:55] LABS: Prothrombin Time (Protime)PT. 34.7 SECONDS (11.7-14.9)
[2019-12-19 18:04] LABS: International Normalized Ratio 3.5
== END ==
PROVIDERS: PCP Family Medicine; Visit Provider Family Medicine
DX: I26.09 Other pulmonary embolism with acute cor pulmonale (principal)
CPT/HCPCS: 85610

== ENCOUNTER → 2019-12-27 15:57 | Outpatient (CLI) | payer MEDICAID, SELFPAY ==
[2018-09-24 13:46] VITALS: BMI 62.9
[2019-12-27 16:35] LABS: International Normalized Ratio 2.7
== END ==
PROVIDERS: PCP Family Medicine; Referring Provider Family Medicine; Visit Provider Family Medicine
DX: I26.09 Other pulmonary embolism with acute cor pulmonale (principal)
CPT/HCPCS: 85610

== ENCOUNTER → 2020-01-01 16:02 | Outpatient (CLI) | payer MEDICAID, SELFPAY ==
[2018-09-24 13:46] VITALS: BMI 62.9
[2020-01-01 17:25] LABS: International Normalized Ratio 2.5; Prothrombin Time (Protime)PT. 26.3 SECONDS (11.7-14.9)
== END ==
PROVIDERS: PCP Family Medicine; Visit Provider Family Medicine
DX: I26.09 Other pulmonary embolism with acute cor pulmonale (principal)
CPT/HCPCS: 85610

== ENCOUNTER → 2020-01-16 16:04 | Outpatient (CLI) | payer MEDICAID, SELFPAY ==
[2018-09-24 13:46] VITALS: BMI 62.9
[2020-01-16 16:31] LABS: International Normalized Ratio 2.4
== END ==
PROVIDERS: PCP Family Medicine; Referring Provider Family Medicine; Visit Provider Family Medicine
DX: I26.09 Other pulmonary embolism with acute cor pulmonale (principal)
CPT/HCPCS: 85610

== ENCOUNTER → 2020-02-17 11:17 | Outpatient (CLI) | payer MEDICAID, SELFPAY ==
[2018-09-24 13:46] VITALS: BMI 62.9
[2020-02-17 11:53] LABS: International Normalized Ratio 2.3; Prothrombin Time (Protime)PT. 25.1 SECONDS (11.7-14.9)
== END ==
PROVIDERS: PCP Family Medicine; Visit Provider Family Medicine
DX: I26.09 Other pulmonary embolism with acute cor pulmonale (principal)
CPT/HCPCS: 85610

== ENCOUNTER → 2020-03-13 14:56 | Outpatient (CLI) | payer MEDICAID, SELFPAY ==
[2018-09-24 13:46] VITALS: BMI 62.9
[2020-03-13 15:37] LABS: Prothrombin Time (Protime)PT. 22.6 SECONDS (11.7-14.9)
== END ==
PROVIDERS: PCP Family Medicine
DX: I26.09 Other pulmonary embolism with acute cor pulmonale (principal)
CPT/HCPCS: 85610

== ENCOUNTER → 2020-04-21 15:44 | Outpatient (CLI) | payer MEDICAID, SELFPAY ==
[2018-09-24 13:46] VITALS: BMI 62.9
[2020-04-21 16:12] LABS: International Normalized Ratio 2.5; Prothrombin Time (Protime)PT. 26.5 SECONDS (11.7-14.9)
== END ==
PROVIDERS: PCP Family Medicine; Visit Provider Family Medicine
DX: I26.09 Other pulmonary embolism with acute cor pulmonale (principal)
CPT/HCPCS: 85610

== ENCOUNTER → 2020-05-20 16:21 | Outpatient (CLI) | payer MEDICAID, SELFPAY ==
[2018-09-24 13:46] VITALS: BMI 62.9
[2020-05-20 17:05] LABS: International Normalized Ratio 2.4
== END ==
PROVIDERS: PCP Family Medicine; Referring Provider Family Medicine; Visit Provider Family Medicine
DX: I26.09 Other pulmonary embolism with acute cor pulmonale (principal)
CPT/HCPCS: 85610

== ENCOUNTER → 2020-06-17 | Outpatient (CLI) | payer MEDICAID, SELFPAY ==
[2018-09-24 13:46] VITALS: BMI 62.9
[2020-06-17 16:20] LABS: International Normalized Ratio 3.1; Prothrombin Time (Protime)PT. 31.1 SECONDS (11.7-14.9)
== END | disposition home or self-care (01) ==
LOC: LABSPEC 15:31
PROVIDERS: PCP Family Medicine; Visit Provider Family Medicine
DX: I26.09 Other pulmonary embolism with acute cor pulmonale (principal)
CPT/HCPCS: 85610

== ENCOUNTER → 2020-06-24 15:40 | Outpatient (CLI) | payer MEDICAID, SELFPAY ==
[2018-09-24 13:46] VITALS: BMI 62.9
[2020-06-24 16:10] LABS: International Normalized Ratio 2.8; Prothrombin Time (Protime)PT. 28.9 SECONDS (11.7-14.9)
== END ==
PROVIDERS: PCP Family Medicine; Visit Provider Family Medicine
DX: I26.09 Other pulmonary embolism with acute cor pulmonale (principal)
CPT/HCPCS: 85610

== ENCOUNTER → 2020-07-10 15:54 | Outpatient (CLI) | payer MEDICAID, SELFPAY ==
[2018-09-24 13:46] VITALS: BMI 62.9
[2020-07-10 16:42] LABS: International Normalized Ratio 2.1; Prothrombin Time (Protime)PT. 22.5 SECONDS (11.7-14.9)
== END ==
PROVIDERS: PCP Family Medicine; Visit Provider Family Medicine
DX: I26.09 Other pulmonary embolism with acute cor pulmonale (principal)
CPT/HCPCS: 85610

== ENCOUNTER → 2020-08-12 15:31 | Outpatient (CLI) | payer MEDICAID, SELFPAY ==
[2018-09-24 13:46] VITALS: BMI 62.9
[2020-08-12 15:57] LABS: International Normalized Ratio 3.2; Prothrombin Time (Protime)PT. 31.8 SECONDS (11.7-14.9)
== END ==
PROVIDERS: PCP Family Medicine; Visit Provider Family Medicine
DX: I26.09 Other pulmonary embolism with acute cor pulmonale (principal)
CPT/HCPCS: 85610

== ENCOUNTER → 2020-08-20 15:36 | Outpatient (CLI) | payer MEDICAID, SELFPAY ==
[2018-09-24 13:46] VITALS: BMI 62.9
[2020-08-20 16:25] LABS: International Normalized Ratio 2.5; Prothrombin Time (Protime)PT. 26.6 SECONDS (11.7-14.9)
== END ==
PROVIDERS: PCP Family Medicine; Referring Provider Family Medicine; Visit Provider Family Medicine
DX: I26.09 Other pulmonary embolism with acute cor pulmonale (principal)
CPT/HCPCS: 85610

== ENCOUNTER 2020-11-05 12:41 | Outpatient (RCR) | payer MEDICAID, SELFPAY ==
[2020-11-05 13:22] VITALS: BP 117/58; PULSE 58; RESP 16; TEMP 36; BMI 64.0
--- NOTE | 2020-11-05 16:14 | PCM.WC.HP ---
History of Present Illness Date of Service: 11/05/20 Chief Complaint: Nonhealing ulcer to right second toe status post toenail removal History of Wound: This is a 55-year-old white female who presents to the wound healing center today for complaint of a nonhealing ulcer to her right second toe status post toenail removal earlier this year. She has a past medical history as listed above. She was previously a patient of Dr. Thompson, and was referred to the wound center from her PCP Dr. Mccarthy. The patient states that she had arterial studies completed in March and September 2020, and that they did not reveal PAD. She had her foot x-rayed earlier this month and states there were no acute findings. She also notes that she has had a negative MRI done earlier this year. The patient states that her right second toe is red and not healing. She has previously taken Augmentin for an infection of this toe, and states that it has not recently been cultured. Currently she is putting Neosporin on the wound daily with no improvement. Patient is a former smoker and is on Coumadin daily for history of PE. Past medical, family, and social history reviewed and not pertinent to the current visit and all other systems reviewed and negative with exception of those listed above. 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 Morbid obesity Obstructive sleep apnea Pulmonary embolism Ulcer of right second toe with fat layer exposed Home Medications ascorbic acid (vitamin C) 500 mg PO DAILY 09/19/18 [History Last Taken Unknown] aspirin 81 mg PO DAILY@0800 09/19/18 [History Last Taken 09/18/18 09:00] calcium carbonate-vitamin D3 2 ea PO BID 09/19/18 [History Last Taken 09/18/18 21:00] cetirizine 10 mg PO DAILY 09/19/18 [History Last Taken 09/17/18 21:00] gabapentin 600 mg PO QHS 09/19/18 [History Last Taken 09/18/18 21:00] hydrochlorothiazide 25 mg PO DAILY 09/19/18 [History Last Taken 09/18/18 09:00] lisinopril 10 mg PO DAILY 09/19/18 [History Last Taken 09/18/18 21:00] loperamide 2 mg PO DAILY 09/19/18 [History Last Taken 09/18/18 09:00] lovastatin 20 mg PO QHS 09/19/18 [History Last Taken 09/18/18 21:00] melatonin 5 mg PO QHS 09/19/18 [History Last Taken 09/18/18 21:00] metformin 1,000 mg PO BID 09/19/18 [History Last Taken 09/18/18 21:00] multivitamin with minerals 1 ea PO DAILY 09/19/18 [History Last Taken 09/18/18 09:00] oxybutynin chloride 5 mg PO BID 09/19/18 [History Last Taken 09/18/18 21:00] pantoprazole 40 mg PO DAILY 09/19/18 [History Last Taken 09/18/18 09:00] paroxetine HCl 40 mg PO DAILY 09/19/18 [History Last Taken 09/18/18 21:00] pramipexole 0.25 mg PO QHS 09/19/18 [History Last Taken 09/18/18 21:00] propranolol 20 mg PO BID 09/19/18 [History Last Taken 09/18/18 21:00] spironolactone 100 mg PO BID 09/19/18 [History Last Taken 09/18/18 21:00] enoxaparin 150 mg SUBCUT Q12@0600,1800 #14 syringe 09/20/18 [Rx Last Taken Unknown] warfarin 5 mg PO DAILY #30 tab 09/20/18 [Rx Last Taken Unknown] diclofenac sodium [Voltaren] ea TOPICAL 11/05/20 [History Last Taken Unknown] ferrous sulfate 27 mg PO DAILY 11/05/20 [History Last Taken Unknown] prochlorperazine maleate 10 mg PO Q6H PRN MDD 16 11/05/20 [History Last Taken Unknown] tizanidine [Zanaflex] 2 mg PO Q8H PRN 11/05/20 [History Last Taken Unknown] Allergy/AdvReac Type Severity Reaction Status Date / Time aspartame Allergy Other Verified 11/05/20 13:36 prednisone Allergy Swelling Verified 09/19/18 18:06 Social History Smoking Status: Former smoker ROS Constitutional Constitutional: Reports systems reviewed and no addt'l complaints, except as documented Eyes Eyes: Reports systems reviewed and no addt'l complaints, except as documented ENT HEENT: Reports systems reviewed and no addt'l complaints, except as documented Cardiovascular Cardiovascular: Reports systems reviewed and no addt'l complaints, except as documented Respiratory/Chest Respiratory/Chest: Reports systems reviewed and no addt'l complaints, except as documented Gastrointestinal Gastrointestinal: Reports systems reviewed and no addt'l complaints, except as documented Genitourinary Genitourinary: Reports systems reviewed and no addt'l complaints, except as documented Musculoskeletal Musculoskeletal: Reports systems reviewed and no addt'l complaints, except as documented Integumentary Integumentary: Reports systems reviewed and no addt'l complaints, except as documented Neurologic Neurologic: Reports systems reviewed and no addt'l complaints, except as documented Psychiatric Psychiatric: Reports systems reviewed and no addt'l complaints, except as documented Endocrine Endocrinology: Reports systems reviewed and no addt'l complaints, except as documented Hematologic/Lymphatic Hematologic/Lymphatic: Reports systems reviewed and no addt'l complaints, except as documented Allergic/Immunologic Allergic/Immunologic: Reports systems reviewed and no addt'l complaints, except as documented Vital Signs Vital Signs Vital Signs: 11/05/20 13:22 Temperature 96.8 F L Temperature Source Temporal Pulse Rate 58 L Respiratory Rate 16 Blood Pressure 117/58 L Blood Pressure Mean 77 Blood Pressure Source Monitor Blood Pressure Position Sitting Blood Pressure Location Right Arm Oxygen Delivery Method Room Air Weight Weight: 385 lb Body Mass Index (BMI) 64.0 Physical Exam Const alert, oriented x3 and well nourished General Appearance: cooperative, comfortable and well kempt Exam Limitations: no limitations Nutritional Appearance: obese HEENT normocephalic Head and Scalp: normal to inspection Mouth: oral and palatal mucosa normal Eyes General Eye: normal appearance of both eyes Resp normal respiratory effort, normal air movement and no use of accessory muscles Effort and Inspection: able to speak in complete sentences Auscultation: clear to auscultation bilaterally Cardio regular rate, regular rhythm, S1 normal heart sound, S2 normal heart sound, no murmurs and peripheral pulses 2+ throughout Palpation: normal PMI Rate: regular rate Heart Sounds: S1 normal and S2 normal GI normal to inspection, nondistended, normoactive bowel sounds, soft to palpation, non-tender and non-distended Palpation: soft Extremity normal to inspection and full ROM General Extremity: normal exam except as noted Skin Wound Narrative: Nonhealing ulcer with slough and devitalized tissue to right second dorsal toe, chronic erythema surrounding the periwound bed is present but no warmth or purulence noted at this time Neuro oriented x3 and moves all extremities Sensorium / Orientation: awake, alert, oriented to person, oriented to place and oriented to time Psych mental status grossly normal, thought process normal and denies hallucinations Appearance: grossly normal Attitude: calm Activity / Motor Behavior: appropriate eye contact Speech: normal speech Thought Process: normal thought process Thought Content: normal thought content Attention / Concentration: attention grossly intact Insight: insight good Judgement: judgement good Debridement Note Debridement Note Wound debrided: Right second toe ulcer Laterality: Right Type of Debridement: Excisional debridement Anesthesia Used: 5% Lidocaine Gel Depth: in the subcutaneous layer Percentage of wound debrided: 100 Instrument Used: 3mm curette Tissue Removed: Slough devitalized tissue Severity: Fat Layer Exposed Amount of bleeding with debridement: Mild Bleeding Controlled with: Pressure Patient tolerated procedure: Patient tolerated procedure well Post-Debridement Measurements and Additional Note: Post-Debridement Measurements/Treatment - Nurse 1 - General Ulcer Assessment Start: 11/05/20 13:22 Freq: Status: Active Protocol: Playground [email or web address] Activity Type Activity Date Activity User E-Sign Co-Sign Detail Recorded Client Recorded Date Recorded By Document 11/05/20 13:22 [facility] [id number] 11/05/20 13:29 [facility] Edit Result 11/05/20 13:22 [facility] (1) [id number] 11/05/20 13:41 [facility] (1) Right - Lower Extremity Comment (If N/A Above) => recent arterial studies at the medical center 09/2020 Left - Lower Extremity Comment (If N/A Above) => recent arterial studies 09/2020 @ the medical center 11/05/20 13:22 - Today's Visit Information Type of service Initial Visit Arrival Mode Ambulatory Transfer Assistance None Patient Identification Verified (Name & Yes ) Patient Requires Transmission-Based No Precautions Height and Weight Height 5 ft 5 in Weight 385 lb Weight in Pounds 385.0 lbs Weight Measurement Method Estimated by Patient Body Mass Index (BMI) 64.0 BMI Classification Obese BSA - Que 2.61 Vital Signs Temperature (97.8 F-99.1 F) 96.8 F L Temperature Source Temporal Pulse Rate (60-100) 58 L Pulse Location Monitor Respiratory Rate (12-18) 16 Respiratory rate source Observation Oxygen Delivery Method Room Air Blood Pressure (90/60-120/80) 117/58 L Blood Pressure Mean 77 Source Monitor Position Sitting Blood Pressure Location Right Arm History Since Last Visit- (Skip if this is Patient's initial visit) Left Footwear Regular Shoe Right Footwear Regular Shoe Lower Extremity Assessment/ Foot Assessment/ Toe Nail Assessment Right -Lower Extremity Comment (If N/A Above recent arterial ) studies at the medical center 09/2020 Left -Lower Extremity Comment (If N/A Above recent arterial ) studies 09/2020 @ the medical center Communication Assessment Preferred language Tristanian Cone Cleaner Required No Able to Read Yes Able to Write Yes Communication Tools None Right Hearing Abillity Normal Left Hearing Abillity Normal Visual Assistive Devices Glasses Teaching Assessment Preferences Verbal,Written, Audio/Visual, Demonstration Barriers to Learning None Readiness To Learn Excellent Willingness to Engage in Self Management High Activies Readiness to Engage in Self Management High Activities Anxiety Level Calm Cooperation Cooperative Perception Coherent Interest in Health Problem Asks Questions Education Importance Acknowledges Need Does Patient Smoke tobacco or other No substances Smoking Status Former smoker Is Patient Diabetic No Functional Assessment Recent Decline in Ability to Perform Denies Any Declines Culture/Bahai/Chalk Cutter Cultural/Bahai Needs that may affect No Treatment Plan Teaching: Wound Center *Welcome to the Wound Center -Person Taught Patient -Teaching Method Discussion -Response to teaching Verbalize understanding Welcome to the Wound Care Center English MAYERS - Nurse 1 - General Ulcer Measurement Start: 11/05/20 13:22 Freq: Status: Active Protocol: Activity Type Activity Date Activity User E-Sign Co-Sign Detail Recorded Client Recorded Date Recorded By Document 11/05/20 13:22 [facility] [id number] 11/05/20 13:29 [facility] 11/05/20 13:22 Wound Center Nurse 1 #2- R 2ND TOE -Combined with other wound No -Current Size (cm) - Length 0.1 -Current Size (cm) - Width 0.1 -Current Size (cm) - Depth 0.1 -Total Square Cm 0.01 -Date of Last Picture (Recall this 11/05/20 field) -Photo Taken Yes -Epithelialization None Present -Tunneling No -Undermining/Tunneling No -Circular Undermining No -Exudate Amt None Present -Texture (Katie-wound Skin Appearance) Assessed, Localized Edema -Moisture (Katie-wound Skin Appearance) Assessed -Color (Katie-wound Skin Appearance) Assessed, Erythema -Temperature (Katie-wound Skin No Abnormality Appearance) (Pt Warm) -Tenderness on Palpation (Katie-wound No Skin Appearance) -Ulcer Cleansing Rinsed/ Irrigated with Saline -Foul Odor after Cleansing No -Anesthetic Used 5% Lidocaine Gel Lower Limb Edema Present Yes Right Calf (cm) 52.5 Right Ankle (cm) 23.5 Left Calf (cm) 53.2 Left Ankle (cm) 24.1 WC - Nurse 2 - General Ulcer CM Notes Start: 11/05/20 13:22 Freq: Status: Active Protocol: Activity Type Activity Date Activity User E-Sign Co-Sign Detail Recorded Client Recorded Date Recorded By Document 11/05/20 13:49 MW [id number] 11/05/20 13:57 MW 11/05/20 13:49 Wound Center Nurse 2 #2- R 2ND TOE -Time 13:49 -Correct Patient Yes -Correct Side, Site, Position Yes -Correct Procedure Yes -Procedure Performed Yes -Type of Procedure Debridement -Clinical Debridement Subcutaneous -Tissue Removed Subcutaneous -Post Debridement (cm) - Length 0.4 -Post Debridement (cm) - Width 1.0 -Post Debridement (cm) - Depth 0.1 -Total Square (Post) (cm) 0.40 -Area of Debridement (cm) - Length 0.4 -Area of Debridement (cm) - Width 1.0 -Total Square (Area) (cm) 0.40 -Tunneling No -Undermining/Tunneling No -Circular Undermining No -Wound/Ulcer Outcome Not Healed -Ulcer Cleansing Rinsed/ Irrigated with Saline -Foul Odor after Cleansing No -Bioengineered Tissue No -Bleeding Controlled with Pressure -Offloading No -Treatment Response Procedure Tolerated Well -Debridement - Subq, 1st 20sq cm Yes Pain Scale: 0-10 Numeric Is Patient Pain Free? Yes WC - Nurse 3 - General Ulcer D/C NN Start: 11/05/20 13:22 Freq: Status: Active Protocol: Activity Type Activity Date Activity User E-Sign Co-Sign Detail Recorded Client Recorded Date Recorded By Document 11/05/20 14:11 AK [id number] 11/05/20 14:12 AK 11/05/20 14:11 Wound Care Nurse 3 #2- R 2ND TOE -Ulcer Cleansing Rinsed/ Irrigated with Saline -Foul Odor after Cleansing No -Negative Pressure Wound Therapy N/A -Primary Dressing Applied NonAdherent Contact Layer, Promogran -Primary Dressing Covered/Secured with Dry Gauze, Secured with Tape -Promogran 1 WC - Visit Discharge Discharge Condition Stable Ambulatory Status Ambulatory Transportation Private Auto Medication Reconcilliation completed & No provided to patient/care provider Clinical Summary of Care Provided Yes Charges/Coding Visit Charges Office Visits / Consults: 16711 OV L4 Est Procedures Integumentary 111xxx-113xx: 40342 Natalia subq tissue 20 sq cm/< Assessment/Plan Assessment/Plan (1) Ulcer of right second toe with fat layer exposed: CODE(S): L97.512 - Non-pressure chronic ulcer of other part of right foot with fat layer exposed (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 Debra Adaptic and gauze applied. At home wound-care instructions: Daily application of Debra cover with Adaptic and gauze, change dressing once daily or more frequently as needed due to contamination. Wash wounds daily with antibacterial soap and water, rinse and dry thoroughly before each dressing change. Compression: Not indicated at this time Off-loading: The patient was instructed to avoid pressure and friction on the affected areas. Reposition every 2 hours at minimum. Avoid prolonged standing and/or dangling of legs. When seated, feet should be elevated at chest level. Frequent ambulation is encouraged. Diet: Patient encouraged to increase protein intake while taking caution to avoid high carbohydrate and/or sugar intake. Patient is a non-smoker Labs/cultures/imaging: Cultures ordered and collected today. Routine baseline lab work requested from [facility]. Vascular studies recently performed and will be requested from [facility] as well. Follow-up: Return to clinic in 1 week for re-evaluation. Return sooner or report to the emergency room should symptoms worsen, or new symptoms arise. This note was generated with [employer] dictation software. It may contain incorrect words, spelling, and punctuation that were not noted in checking the note before signing. I have spent 35 minutes today reviewing labs, records, and history. Time includes coordinating care, interpretation of tests, and counseling the patient/family. This also includes time I spent with the patient for exam, treatment plan, and education as well as documenting clinical information in the electronic health record.
== END 2020-11-05 23:59 ==
LOC: WC 12:41
PROVIDERS: PCP Family Medicine; Visit Provider Nurse Practitioner Family
DX: L97.512 Non-pressure chronic ulcer of other part of right foot with fat layer exposed (principal); Z87.891 Personal history of nicotine dependence; Z79.01 Long term (current) use of anticoagulants; I10 Essential (primary) hypertension; E78.5 Hyperlipidemia, unspecified; G47.33 Obstructive sleep apnea (adult) (pediatric); E66.01 Morbid (severe) obesity due to excess calories; Z86.711 Personal history of pulmonary embolism; Z79.899 Other long term (current) drug therapy; Z79.82 Long term (current) use of aspirin; Z79.84 Long term (current) use of oral hypoglycemic drugs; Z68.44 Body mass index [BMI] 60.0-69.9, adult
CPT/HCPCS: 11042; 87070; 87075; 87077; 87186; 87205; 99203; G0463

== ENCOUNTER 2020-11-12 13:15 | Outpatient (RCR) | payer MEDICAID, SELFPAY ==
[2020-11-06 00:38] VITALS: BP 117/58; PULSE 58; RESP 16; TEMP 36; BMI 64.0
[2020-11-12 13:13] VITALS: BP 142/76; PULSE 85; TEMP 35.7; BMI 64.0
--- NOTE | 2020-11-12 15:01 | PN.PCM_ITS ---
History of Present Illness Date of Service: 11/12/20 Chief Complaint: Nonhealing ulcer to right second toe status post toenail removal History of Wound: This is a 55-year-old white female who presents to the wound healing center today for complaint of a nonhealing ulcer to her right second toe status post toenail removal earlier this year. She has a past medical history as listed above. She was previously a patient of Dr. Thompson, and was referred to the wound center from her PCP Dr. Mccarthy. The patient states that she had arterial studies completed in March and September 2020, and that they did not reveal PAD. She had her foot x-rayed earlier this month and states there were no acute findings. She also notes that she has had a negative MRI done earlier this year. The patient states that her right second toe is red and not healing. She has previously taken Augmentin for an infection of this toe, and states that it has not recently been cultured. Currently she is putting Neosporin on the wound daily with no improvement. Patient is a former smoker and is on Coumadin daily for history of PE. Past medical, family, and social history reviewed and not pertinent to the current visit and all other systems reviewed and negative with exception of those listed above. Progress of Wound: The patient's wound has healed without any signs of infection at this time, her wound culture did grow staph and she is treated with doxycycline which she is tolerating well. No new concerns Objective Data Objective Data Vital Signs: Vital Signs Temp Pulse Resp BP 96.2 F L 85 16 142/76 H 11/12/20 13:13 11/12/20 13:13 11/06/20 00:38 11/12/20 13:13 Weight: 385 lb Body Mass Index (BMI) 64.0 Charges/Coding Visit Charges Office Visits / Consults: 33915 OV L3 Est Physical Exam Const alert, oriented x3 and well nourished General Appearance: cooperative, comfortable and well kempt Exam Limitations: no limitations Nutritional Appearance: obese HEENT normocephalic Head and Scalp: normal to inspection Mouth: oral and palatal mucosa normal Eyes General Eye: normal appearance of both eyes Resp normal respiratory effort, normal air movement and no use of accessory muscles Effort and Inspection: able to speak in complete sentences Auscultation: clear to auscultation bilaterally Cardio regular rate, regular rhythm, S1 normal heart sound, S2 normal heart sound, no murmurs and peripheral pulses 2+ throughout Palpation: normal PMI Rate: regular rate Heart Sounds: S1 normal and S2 normal GI normal to inspection, nondistended, normoactive bowel sounds, soft to palpation, non-tender and non-distended Palpation: soft Extremity normal to inspection and full ROM General Extremity: normal exam except as noted Skin Wound Narrative: Nonhealing ulcer to right second dorsal toe, is now healed without any signs of infection noted at this time Neuro oriented x3 and moves all extremities Sensorium / Orientation: awake, alert, oriented to person, oriented to place and oriented to time Psych mental status grossly normal, thought process normal and denies hallucinations Appearance: grossly normal Attitude: calm Activity / Motor Behavior: appropriate eye contact Speech: normal speech Thought Process: normal thought process Thought Content: normal thought content Attention / Concentration: attention grossly intact Insight: insight good Judgement: judgement good Assessment/Plan Assessment/Plan (1) Ulcer of right second toe with fat layer exposed: CODE(S): L97.512 - Non-pressure chronic ulcer of other part of right foot with fat layer exposed (2) long-term current use of anticoagulant: CODE(S): Z79.01 - long-term (current) use of anticoagulants (3) Morbid obesity: CODE(S): E66.01 - Morbid (severe) obesity due to excess calories (4) Pulmonary embolism: CODE(S): I26.99 - Other pulmonary embolism without acute cor pulmonale (5) HTN (hypertension): CODE(S): I10 - Essential (primary) hypertension (6) Hyperlipidemia: CODE(S): E78.5 - Hyperlipidemia, unspecified (7) Obstructive sleep apnea: CODE(S): G47.33 - Obstructive sleep apnea (adult) (pediatric) PLAN: Wound is now healed without any signs of infection at this time. For wound protection Adaptic and gauze applied. At home wound-care instructions: Daily application of Adaptic and gauze for the next week for wound protection. Also instructed to continue her entire course of antibiotics. Off-loading: The patient was instructed to avoid pressure and friction on the affected areas. Reposition every 2 hours at minimum. Avoid prolonged standing and/or dangling of legs. When seated, feet should be elevated at chest level. Frequent ambulation is encouraged. Diet: Patient encouraged to increase protein intake while taking caution to avoid high carbohydrate and/or sugar intake. Follow-up: Because the patient feels she will be discharged from the wound center today. Return sooner or report to the emergency room should symptoms worsen, or new symptoms arise. This note was generated with [employer] dictation software. It may contain incorrect words, spelling, and punctuation that were not noted in checking the note before signing. I have spent 35 minutes today reviewing labs, records, and history. Time includes coordinating care, interpretation of tests, and counseling the patient /family. This also includes time I spent with the patient for exam, treatment plan, and education as well as documenting clinical information in the electronic health record.
== END 2020-11-12 13:33 | disposition home or self-care (01) ==
LOC: WC 13:15
PROVIDERS: PCP Family Medicine; Visit Provider Nurse Practitioner Family
DX: Z09 Encounter for follow-up examination after completed treatment for conditions other than malignant neoplasm (principal); Z87.891 Personal history of nicotine dependence; Z79.01 Long term (current) use of anticoagulants; Z86.711 Personal history of pulmonary embolism; I10 Essential (primary) hypertension; E66.01 Morbid (severe) obesity due to excess calories; E78.5 Hyperlipidemia, unspecified; G47.33 Obstructive sleep apnea (adult) (pediatric); Z68.44 Body mass index [BMI] 60.0-69.9, adult
CPT/HCPCS: 99213; G0463

== ENCOUNTER 2022-05-26 11:14 | Emergency (ER) | payer MEDICAID, SELFPAY ==
[2022-05-26 11:15] VITALS: BP 102/83; PULSE 84; RESP 16; TEMP 36.6; O2SAT 97; BMI 64.0
--- NOTE | 2022-05-26 11:35 | CT_ITS ---
STUDY: CT ABDOMEN AND PELVIS WITHOUT CONTRAST REASON FOR EXAM: Female, 57 years old. Kidney Stone. Hematuria, dysuria and lower abdominal pain. RADIATION DOSAGE (If Supplied By Facility): CTDIvol = ( 24.18 ) mGy, DLP = ( 1214.11 ) mGycm TECHNIQUE: Transaxial images were obtained from the dome of the diaphragm to the symphysis pubis without oral contrast, and without intravenous contrast. Sagittal and coronal images were reconstructed. Individualized dose optimization techniques were used for this CT. COMPARISON: None. FINDINGS: The visualized lung bases are unremarkable. Coronary artery calcification. Normal liver. There are surgical clips in the gallbladder fossa consistent with a prior cholecystectomy. There is 1.3 cm rounded calcification in the first portion of the duodenum. Normal spleen. Normal pancreas. Normal bilateral adrenal glands. Normal right kidney. Normal left kidney. Normal visualized stomach. Normal small intestine. There are multiple colonic diverticula consistent with diverticulosis. The appendix is visualized and appears normal. Normal abdominal aorta. Normal inferior vena cava. Normal retroperitoneum. The urinary bladder is only partially distended. Normal abdominal wall. There are diffuse degenerative changes of the visualized lumbar spine. CT/Abdomen/Pelvis without Cont IMPRESSION: The patient is status post cholecystectomy. A 1.3 cm rounded calcification is seen in the first portion of the duodenum. This may represent an ingested tablet. Electronically Signed: Negro Salazar MD at 12:38 EDT ,
--- NOTE | 2022-05-26 11:37 | ED.VIS.FEGU ---
HPI HPI - Female History of Present Illness Chief Complaint: Complaint Narrative Narrative: 57-year-old female past medical history of hypertension, hyperlipidemia, pulmonary embolism on Coumadin presents with hematuria that she has had intermittently for the last 3 weeks. She states she has suprapubic abdominal pain and thought that may be she had either a kidney stone or UTI. However, she went to urgent care prior to arrival where they tested her urine, and stated that it was not a urinary tract infection. She denies any exacerbating or alleviating factors, and her last bout of hematuria was just prior to arrival. She states she has not had kidney stones in the past. [facility] Medical History HTN (hypertension) Hyperlipidemia lobsterman current use of anticoagulant Morbid obesity Obstructive sleep apnea Pulmonary embolism Ulcer of right second toe with fat layer exposed Home Medications ascorbic acid (vitamin C) 500 mg capsule 500 mg PO DAILY 09/19/18 [History Last Taken Unknown] aspirin 81 mg chewable tablet 81 mg PO DAILY@0800 09/19/18 [History Last Taken 09/18/18 09:00] calcium carbonate-vitamin D3 600 mg-125 unit tablet 2 ea PO BID 09/19/18 [History Last Taken 09/18/18 21:00] cetirizine 10 mg capsule 10 mg PO DAILY ALLERGY 09/19/18 [History Last Taken 09/17/18 21:00] gabapentin 300 mg capsule 600 mg PO QHS restless legs 09/19/18 [History Last Taken 09/18/18 21:00] hydrochlorothiazide 25 mg tablet 25 mg PO DAILY blood pressure 09/19/18 [History Last Taken 09/18/18 09:00] lisinopril 10 mg tablet 10 mg PO DAILY blood pressure 09/19/18 [History Last Taken 09/18/18 21:00] loperamide 2 mg capsule 2 mg PO DAILY 09/19/18 [History Last Taken 09/18/18 09:00] lovastatin 20 mg tablet 20 mg PO QHS cholesterol 09/19/18 [History Last Taken 09/18/18 21:00] melatonin 5 mg capsule 5 mg PO QHS 09/19/18 [History Last Taken 09/18/18 21:00] metformin 1,000 mg tablet,extended release 24hr 1,000 mg PO BID diabetes 09/19/18 [History Last Taken 09/18/18 21:00] multivitamin with minerals 1 ea PO DAILY 09/19/18 [History Last Taken 09/18/18 09:00] oxybutynin chloride 5 mg tablet 5 mg PO BID 09/19/18 [History Last Taken 09/18/18 21:00] pantoprazole 40 mg tablet,delayed release 40 mg PO DAILY 09/19/18 [History Last Taken 09/18/18 09:00] paroxetine HCl 20 mg tablet 40 mg PO DAILY anxiety 09/19/18 [History Last Taken 09/18/18 21:00] pramipexole 0.25 mg tablet 0.25 mg PO QHS restless legs 09/19/18 [History Last Taken 09/18/18 21:00] propranolol 20 mg tablet 20 mg PO BID 09/19/18 [History Last Taken 09/18/18 21:00] spironolactone 100 mg tablet 100 mg PO BID 09/19/18 [History Last Taken 09/18/18 21:00] enoxaparin 150 mg/mL subcutaneous syringe 150 mg subcut Q12@0600,1800 ##14 09/20/18 [Rx Last Taken Unknown] warfarin 5 mg tablet 5 mg PO DAILY #30 tabs 09/20/18 [Rx Last Taken Unknown] diclofenac sodium 1 % topical gel ea topical 11/05/20 [History Last Taken Unknown] ferrous sulfate 27 mg iron tablet 27 mg PO DAILY 11/05/20 [History Last Taken Unknown] prochlorperazine maleate 10 mg tablet 10 mg PO Q6H PRN Muscle Spasm 11/05/20 [History Last Taken Unknown] tizanidine 2 mg tablet 2 mg PO Q8H PRN Muscle Pain 11/05/20 [History Last Taken Unknown] doxycycline hyclate 100 mg capsule 100 mg PO BID #20 caps 11/10/20 [Rx Last Taken Unknown] Allergy/AdvReac Type Severity Reaction Status Date / Time aspartame Allergy Other Verified 05/26/22 11:17 prednisone Allergy Swelling Verified 05/26/22 11:17 Social History Smoking Status: Former smoker ROS ROS ED ROS Narrative Constitutional: No fever, no chills. HEENT: No sore throat. No neck pain. No loss of vision. No rhinorrhea. Cardiovascular: No chest pain. No palpitations. No pedal edema. Respiratory: No cough, no shortness of breath. Abdominal: Suprapubic abdominal pain. No nausea. No vomiting. Genitourinary: No dysuria. 3 weeks of intermittent hematuria. Musculoskeletal: No myalgias. No arthralgias. Neurologic: No headaches. No dizziness. No lightheadedness. Skin: No rash. No change in color. Psychiatric: No depression. No anxiety. EXAM Physical Exam Narrative Exam Narrative: Afebrile. Vital signs noted. HEENT: Normocephalic. Atraumatic. PERRL, EOMI. Neck soft and supple. No point tenderness or step off. Cardiovascular: Regular rate and rhythm. No murmurs, rubs, or gallops appreciated. Respiratory: No tachypnea. Lungs clear to auscultation bilaterally. Gastrointestinal: Abdomen soft, obese, nontender, with normoactive bowel sounds. No rebound or guarding. Neurological: Awake. Alert. Nonfocal, nonlateralizing. Skin: No rash. Normal color. No pallor. Musculoskeletal: No pedal edema. Full range of motion extremities. Const Vital Signs: 05/26/22 11:15 05/26/22 12:54 Temperature 98 F Temperature Source Temporal Pulse Rate 84 72 Respiratory Rate 16 15 Blood Pressure 102/83 H 132/69 H Blood Pressure Mean 89 Pulse Ox 97 98 Oxygen Delivery Method Room Air MDM MDM MDM Narrative Medical decision making narrative: In discussion with the patient, I am unsure as to the cause of her hematuria, but I will obtain an INR to see what her warfarin level is elevated in case she is having spontaneous hematuria. I will repeat a UA as I am unable to obtain the results from the outpatient facility this is to rule out infection as a cause of reported hematuria. I do feel CT imaging would be indicated to rule out any intra-abdominal or suprapubic pathology including ureteral stones, or bladder mass. Of note, patient did state that she needs to leave the emergency department by a certain time and that she would be willing to sign out AGAINST MEDICAL ADVICE if needed. I reviewed the patient's laboratory work and she has a normal white count of 8.0, hemoglobin stable 11.6, hematocrit 36.9. INR is appropriately elevated at 2.2 with her use of warfarin. She has a BUN of 32 and a creatinine of 1.36, but it seems to be at her baseline. She has normal sodium of 137 with potassium 4.9 and normal. Urinalysis shows no evidence of RBCs and normal at 0-5 with 10-25 WBCs and 1+ bacteria without epithelial cells. Her CT of the abdomen and pelvis report was reviewed and there is no evidence of acute ureterolithiasis, no acute process to explain her suprapubic abdominal pain. At this point in time, I discussed with her the use of antibiotics, but she is not having true dysuria and only reports hematuria with abdominal pain. She states that the last time she was put on nitrofurantoin, it made her very ill. She would like to defer antibiotics. Through shared decision making urine culture will be obtained and a prescription called in at that time should it be positive. She will follow-up with her primary care provider. Return instructions to the emergency department were reviewed. Disposition is discharged home in stable condition. History & Record Review Discussion w/independent historian: Patient Additional record(s) reviewed:: Prior ED visit Lab Data Attestation: I reviewed the patient's lab results. Labs: Laboratory Results - last 24 hr 05/26/22 05/26/22 05/26/22 11:40 11:40 11:40 WBC 8.0 RBC 3.74 L Hgb 11.6 L Hct 36.9 L MCV 98.7 MCH 31.0 MCHC 31.4 L RDW Std Deviation 48.0 H RDW Coeff of Delta 13.4 Plt Count 336 MPV 9.3 Immature Gran % (Auto) 0.500 Neut % (Auto) 61.6 Lymph % (Auto) 26.0 [place] % (Auto) 7.4 Eos % (Auto) 4.1 Baso % (Auto) 0.4 Absolute Neuts (auto) 4.9 Absolute Lymphs (auto) 2.08 Nucleated RBC % 0 PT 24.4 H INR 2.2 Sodium 137 Potassium 4.9 Chloride 105 Carbon Dioxide 31.0 Anion Gap 1 L BUN 32 H Creatinine 1.36 H Estim Creat Clear Calc 42.06 Est GFR (MDRD) Af Amer 52 L Est GFR (MDRD) Non-Af 43 L BUN/Creatinine Ratio 23.5 H Glucose 101 Calcium 8.9 Urine Color Urine Clarity Urine pH Ur Specific [place] Urine Protein Urine Glucose (UA) Urine Ketones Urine Occult Blood Urine Nitrite Urine Bilirubin Urine Urobilinogen Ur Leukocyte Esterase Urine RBC Urine WBC Ur Squamous Epith Cells Urine Bacteria Urine Mucus 05/26/22 12:25 WBC RBC Hgb Hct MCV MCH MCHC RDW Std Deviation RDW Coeff of [place] Plt Count MPV Immature Gran % (Auto) Neut % (Auto) Lymph % (Auto) [place] % (Auto) Eos % (Auto) Baso % (Auto) Absolute Neuts (auto) Absolute Lymphs (auto) Nucleated RBC % PT INR Sodium Potassium Chloride Carbon Dioxide Anion Gap BUN Creatinine Estim Creat Clear Calc Est GFR (MDRD) Af Amer Est GFR (MDRD) Non-Af BUN/Creatinine Ratio Glucose Calcium Urine Color Yellow Urine Clarity Sl. Cloudy Urine pH 6.0 Ur Specific [place] 1.015 Urine Protein 30 H Urine Glucose (UA) Normal Urine Ketones Negative Urine Occult Blood 25 H Urine Nitrite Negative Urine Bilirubin Negative Urine Urobilinogen Normal Ur Leukocyte Esterase 100 H Urine RBC 0-5 SEEN Urine WBC 10-25 SEEN Ur Squamous Epith Cells 0-5 SEEN Urine Bacteria 1+ Urine Mucus 0 SEEN Radiography Diagnostic Testing: Clinical Impression(s) from Imaging Studies Abdomen/Pelvis CT 05/26/22 11:35 IMPRESSION: The patient is status post cholecystectomy. A 1.3 cm rounded calcification is seen in the first portion of the duodenum. This may represent an ingested tablet. Electronically Signed: Negro Salazar MD at 12:38 EDT Reading Location ID and State: [address] [place] [address] , Service support , Discharge Plan Triage Chief Complaint: Complaint ED Provider: Isaac Chapman Dx/Rx/DC Orders Clinical Impression: Abdominal pain, suprapubic, Hematuria Instructions: ED Abdominal Pain Unkn Cause Fem, ED Hematuria Prescriptions: No Action loperamide 2 MG capsule 2 mg PO DAILY spironolactone 100 MG tablet 100 mg PO BID paroxetine HCl 20 MG tablet 40 mg PO DAILY pantoprazole 40 MG tablet 40 mg PO DAILY lisinopril 10 MG tablet 10 mg PO DAILY pramipexole 0.25 MG tablet 0.25 mg PO QHS gabapentin 300 MG capsule 600 mg PO QHS aspirin 81 MG tablet,chewable 81 mg PO DAILY@0800 hydrochlorothiazide 25 MG tablet 25 mg PO DAILY multivitamin with minerals 1 EACH tablet 1 ea PO DAILY lovastatin 20 MG tablet 20 mg PO QHS propranolol 20 MG tablet 20 mg PO BID oxybutynin chloride 5 MG tablet 5 mg PO BID metformin 1,000 MG tablet extended release 24hr 1,000 mg PO BID calcium carbonate-vitamin D3 1 EACH tablet 2 ea PO BID cetirizine 10 MG capsule 10 mg PO DAILY melatonin 5 MG capsule 5 mg PO QHS ascorbic acid (vitamin C) 500 MG capsule 500 mg PO DAILY warfarin 5 MG tablet 5 mg PO DAILY Qty: 30 0RF Rx Instructions: take 2 tabs on 1st day, then 1.5 tabs on 2nd day, then 1 daily thereafter. enoxaparin 150 MG/ML syringe 150 mg subcut Q12@0600,1800 Qty: 14 0RF Rx Instructions: treat 24hours after INR greater then or equal to 2 tizanidine [Zanaflex] 2 mg Tablet 2 mg PO Q8H PRN (Reason: Muscle Pain) prochlorperazine maleate 10 mg Tablet 10 mg PO Q6H MDD 16 PRN (Reason: Muscle Spasm) ferrous sulfate 27 mg iron Tablet 27 mg PO DAILY diclofenac sodium [Voltaren] 1 % Gel TOPICAL doxycycline hyclate 100 mg capsule 100 mg PO BID Qty: 20 0RF Rx Instructions: Hold vitamins and supplements while on this medication Primary Care Provider: Pablo Mccarthy Referrals: Pablo Mccarthy MD [Primary Care Provider] - 3-5 Days if not improving Activity Restrictions/Additional Instructions: Your urine culture is pending. They will call you if it is positive for urinary tract infection and they should call in an antibiotic at that time. Otherwise, follow-up with your primary care physician in the next 3 to 5 days. Return with new or worsening symptoms. Disposition Disposition: Home, Self Care Discharge Date/Time: 05/26/22 12:54
[2022-05-26 11:57] LABS: Absolute Lymphocyte Count 2.08 X10^3/uL (0.83-4.51); Absolute Neutrophil Count 4.9 X10^3/uL (2.0-7.7); Basophil# 0.03 X10^3/uL; Basophil% 0.4 % (0-1); Eosinophil# 0.33 X10^3/uL; Eosinophils% 4.1 % (0-5); Hematocrit 36.9 % (37-47); Hemoglobin 11.6 g/dL (12.0-15.0); Lymphocyte # 2.08 X10^3/ul (0.83-4.51); Mean Corp Hgb Conc 31.4 g/dL (32-36); Mean Corpuscular Volume 98.7 fL (81-99); Mean Platelet Vol. 9.3 fl (6.2-12.0); Monocyte# 0.59 X10^3/uL; Monocyte% 7.4 % (0-10); NRBC Flagged by Analyzer 0 % (0-5); Neutrophil # 4.92 X10^3/uL (2.7-7.7); Neutrophil % 61.6 % (47-70); Platelet Count 336 K/mm3 (150-450); RBC Distribution Width CV 13.4 % (11.6-14.6); Red Blood Count 3.74 M/mm3 (4.2-5.4)
[2022-05-26 12:12] LABS: International Normalized Ratio 2.2; Prothrombin Time (Protime)PT. 24.4 SECONDS (11.7-14.9)
[2022-05-26 12:16] LABS: Anion Gap 1 (5-15); BUN 32 mg/dL (7-18); BUN/Creat Ratio 23.5 RATIO (10-20); Calcium,Total 8.9 mg/dL (8.5-10.1); Chloride 105 mmol/L (98-107); Creatinine, Serum 1.36 mg/dL (0.55-1.02); EST Glomerular Filtration Rate 43 mL/min (>60); Est Glom Filt Rate - Afr Amer 52 mL/min (>60); Estimated Creatinine Clearance 42.06 ml/min; Glucose 101 mg/dL (74-106); Potassium 4.9 mmol/L (3.5-5.1); Sodium Level 137 mmol/L (136-145)
[2022-05-26 12:31] LABS: Mucous, Urine 0 SEEN /hpf (<or=2+)
[2022-05-26 12:32] LABS: Color, Urine Yellow (Yellow); Glucose, Dipstick Normal (Normal); Ketone-Dipstick Negative (Negative); Leukocyte Esterase-Dipstick 100 /ul (Negative); Nitrite-Dipstick Negative (Negative); Occult Blood-Urine 25 /ul (Negative); Protein-Dipstick 30 mg/dl (Negative); Specific Gravity, Urine 1.015 (1.002-1.030); Urine Bilirubin Dipstick Negative (Negative); Urine Clarity Sl. Cloudy (Clear); Urine Urobilinogen Normal (Normal)
[2022-05-26 12:42] LABS: Bacteria 1+ /hpf (None Seen); Red Blood Cells-Urine 0-5 SEEN /hpf (0-5); Squamous Epithelial Cells - UA 0-5 SEEN /hpf (5-10); White Blood Cells 10-25 SEEN /hpf (0-5)
[2022-05-26 12:54] VITALS: BP 132/69; PULSE 72; RESP 15; O2SAT 98
== END 2022-05-26 12:54 | disposition home or self-care (01) ==
PROVIDERS: Emergency Provider Emergency Medicine; PCP Family Medicine; Referring Provider Emergency Medicine; Visit Provider Emergency Medicine
DX: R10.9 Unspecified abdominal pain (principal); R31.9 Hematuria, unspecified; G47.33 Obstructive sleep apnea (adult) (pediatric); Z86.711 Personal history of pulmonary embolism; Z79.01 Long term (current) use of anticoagulants; Z87.891 Personal history of nicotine dependence
CPT/HCPCS: 74176; 80048; 81001; 85025; 85610; 87086; 87088; 99283